=== PATIENT | female | born 1955 | race Caucasian/White ===

== ENCOUNTER 2023-01-02 07:22 | Outpatient (CLI) | payer OTHER | END 2023-01-02 07:24 | disposition home or self-care (01) | LOC: TOM 07:22 | PROVIDERS: ATTEND Internal Medicine Gastroenterology | DX: K56.1 Intussusception (principal); Z80.0 Family history of malignant neoplasm of digestive organs ==

== ENCOUNTER 2023-01-18 10:42 | Outpatient (CLI) | payer OTHER | END 2023-01-18 10:47 | disposition home or self-care (01) | LOC: NUCLEAR 10:42 | PROVIDERS: ATTEND Specialist | DX: M81.0 Age-related osteoporosis without current pathological fracture (principal) ==